=== PATIENT | female | born 1960 | race Caucasian/White ===

== ENCOUNTER 2016-11-17 11:14 | Inpatient (IN) | payer OTHER ==
[2016-11-18] MEDS: oxyCODONE IR 5 MG TAB PO PRN ×3 (14:31→21:45)
[2016-11-18] MEDS ORDERED: CEPACOL LOZENGE PO PRN (15:43)
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
[2016-11-18] MEDS: ACETAMINOPHEN 325 MG TAB PO PRN ×2 (18:15→23:29)
[2016-11-18] MEDS: DIAZEPAM 5 MG TAB PO PRN (19:21)
[2016-11-18] MEDS: oxyCODONE CR 15 MG TAB PO SCH (20:26)
[2016-11-18] MEDS ORDERED: [UNRECOGNIZED DRUG - REMARK] SC SCH (21:00)
[2016-11-18] MEDS ORDERED: BACITRACIN TP SCH (21:00)
[2016-11-18] MEDS: CYCLOBENZAPRINE 10 MG TAB PO PRN (21:45)
[2016-11-18] MEDS: THYROID 60 MG TAB PO SCH (21:47)
[2016-11-18] MEDS: FAMOTIDINE 20 MG TAB PO SCH (21:47)
[2016-11-18] MEDS: SENNOSIDES 1 TAB PO SCH (21:47)
[2016-11-18] MEDS: ENOXAPARIN 30 MG/0.3 ML SYR SC SCH (21:49)
[2016-11-18] MEDS: BACITRACIN OINTMENT 1 PACKET TP SCH (21:49)
[2016-11-19] MEDS: DIAZEPAM 5 MG TAB PO PRN ×2 (01:05→20:59)
[2016-11-19] MEDS: oxyCODONE IR 5 MG TAB PO PRN ×4 (01:06→23:18)
[2016-11-19] MEDS: CYCLOBENZAPRINE 10 MG TAB PO PRN (04:59)
[2016-11-19] MEDS: BACITRACIN OINTMENT 1 PACKET TP SCH ×2 (08:22→21:01)
[2016-11-19] MEDS: ACETAMINOPHEN 325 MG TAB PO PRN ×2 (08:22→23:17)
[2016-11-19] MEDS: ENOXAPARIN 30 MG/0.3 ML SYR SC SCH ×2 (08:28→21:00)
[2016-11-19] MEDS: FAMOTIDINE 20 MG TAB PO SCH ×2 (08:29→21:00)
[2016-11-19] MEDS: oxyCODONE CR 15 MG TAB PO SCH ×2 (08:29→21:00)
[2016-11-19] MEDS: SENNOSIDES 1 TAB PO SCH (08:29)
[2016-11-19 09:00] LABS: ALANINE AMINOTRANSFERASE 119 IU/L (9-52); ALBUMIN 2.9 g/dL (3.5-5.0); ALKALINE PHOSPHATASE 191 IU/L (38-126); ANION GAP 10 mEq/L (8-16); ASPARTATE AMINOTRANSFERASE 58 IU/L (14-46); BILIRUBIN,TOTAL 0.8 mg/dL (0.1-1.4); CALCIUM 8.7 mg/dL (8.5-10.4); CARBON DIOXIDE 27 mEq/l (22-31); CHLORIDE 99 mEq/L (97-110); CREATININE 0.7 mg/dL (0.6-1.0); GLOMERULAR FILTRATION RATE > 60; GLUCOSE 83 mg/dL (70-100); POTASSIUM 4.4 mEq/L (3.5-5.2); SODIUM 136 mEq/L (134-144); TOTAL PROTEIN 5.8 g/dL (6.3-8.2)
[2016-11-19 09:16] LABS: VITAMIN D 25-HYDROXY TOTAL 17.1 ng/mL (30-100)
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
[2016-11-19 11:52] LABS: % IMMATURE GRANULYOCYTES 1.3 % (0.0-1.1); ABSOLUTE IMMATURE GRANULOCYTES 0.09 10^3/uL (0.00-0.10); ADD DIFF? NO; ADD MORPH? NO; ADD SCAN? NO; ATYPICAL LYMPHOCYTE FLAG 0 (0-99); FRAGMENT RBC FLAG 0 (0-99); HEMATOCRIT 27.3 % (38.0-47.0); HEMOGLOBIN 9.1 g/dL (12.6-16.3); LEFT SHIFT FLG 20 (0-99); LIPEMIA HEMOLYSIS FLAG 80 (0-99); MEAN CELL HEMOGLOBIN 31.6 pg (27.9-34.1); MEAN CELL HEMOGLOBIN CONCENTR. 33.3 g/dL (32.4-36.7); MEAN CELL VOLUME 94.8 fL (81.5-99.8); MEAN PLATELET VOLUME 9.3 fL (8.7-11.7); PLATELET CLUMPS FLAG 0 (0-99); PLATELET COUNT 256 10^3/uL (150-400); RED BLOOD CELL COUNT 2.88 10^6/uL (4.18-5.33); RED CELL DISTRIBUTION WIDTH 12.7 % (11.5-15.2)
[2016-11-19] MEDS ORDERED: BISACODYL 10 MG SUPP PR ONE (11:56)
[2016-11-19] MEDS: MAGNESIUM GLYCINATE 400 MG PO SCH (14:00)
[2016-11-19] MEDS: POLYETHYLENE GLYCOL 3350 17 GM PKT PO PRN (14:53)
[2016-11-19] MEDS: CYCLOBENZAPRINE 10 MG TAB PO SCH (18:06)
[2016-11-19] MEDS: SENNOSIDES/DOCUSATE SODIUM TAB PO SCH (20:59)
[2016-11-19] MEDS: THYROID 60 MG TAB PO SCH (20:59)
[2016-11-19] MEDS: CALCIUM CARB W/VIT D 500 MG TAB PO SCH (21:00)
[2016-11-19] MEDS: ASCORBIC ACID 500 MG TAB PO SCH (21:00)
[2016-11-19] MEDS: BENEFIBER/NUTRISOURCE FIBER PKT 1 EACH PO SCH (21:00)
[2016-11-20] MEDS: ACET/CAFFEINE/BUTA FIORICET 1 EACH TAB PO PRN (06:29)
[2016-11-20] MEDS: oxyCODONE IR 5 MG TAB PO PRN ×3 (06:32→18:54)
[2016-11-20] MEDS: BACITRACIN OINTMENT 1 PACKET TP SCH ×2 (08:42→20:35)
[2016-11-20] MEDS: MAGNESIUM GLYCINATE 400 MG PO SCH (08:42)
[2016-11-20] MEDS: BENEFIBER/NUTRISOURCE FIBER PKT 1 EACH PO SCH ×2 (08:42→20:30)
[2016-11-20] MEDS: ENOXAPARIN 30 MG/0.3 ML SYR SC SCH ×2 (08:42→20:35)
[2016-11-20] MEDS: oxyCODONE CR 15 MG TAB PO SCH ×2 (08:43→20:35)
[2016-11-20] MEDS: CALCIUM CARB W/VIT D 500 MG TAB PO SCH ×2 (08:43→20:34)
[2016-11-20] MEDS: ASCORBIC ACID 500 MG TAB PO SCH ×2 (08:44→20:35)
[2016-11-20] MEDS: SENNOSIDES/DOCUSATE SODIUM TAB PO SCH ×2 (08:44→19:03)
[2016-11-20] MEDS: FAMOTIDINE 20 MG TAB PO SCH ×2 (08:44→20:35)
[2016-11-20] MEDS ORDERED: traMADol 50 MG TAB PO ONE (13:00)
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
[2016-11-20] MEDS: CYCLOBENZAPRINE 10 MG TAB PO SCH (18:51)
[2016-11-20] MEDS: ACETAMINOPHEN 325 MG TAB PO PRN (19:50)
[2016-11-20] MEDS: THYROID 60 MG TAB PO SCH (20:35)
[2016-11-20] MEDS: traMADol 50 MG TAB PO PRN (22:53)
[2016-11-21] MEDS: ACET/CAFFEINE/BUTA FIORICET 1 EACH TAB PO PRN (08:15)
[2016-11-21] MEDS: oxyCODONE CR 15 MG TAB PO SCH ×2 (08:16→21:15)
[2016-11-21] MEDS: ENOXAPARIN 30 MG/0.3 ML SYR SC SCH ×2 (08:16→21:17)
[2016-11-21] MEDS: ASCORBIC ACID 500 MG TAB PO SCH ×2 (08:16→21:00)
[2016-11-21] MEDS: FAMOTIDINE 20 MG TAB PO SCH ×2 (08:16→21:14)
[2016-11-21] MEDS: CALCIUM CARB W/VIT D 500 MG TAB PO SCH ×2 (08:16→21:14)
[2016-11-21] MEDS: SENNOSIDES/DOCUSATE SODIUM TAB PO SCH ×2 (08:17→21:14)
[2016-11-21] MEDS: MAGNESIUM GLYCINATE 400 MG PO SCH (08:18)
--- NOTE | 2016-11-21 09:12 | PDOREHIP ---
Admission [facility] - Admission - 3 Day Assessment Period Admission Date/Day 1: 11/18/16 Day 2: 11/19/16 Day 3: 11/20/16 - Active Diagnoses Comorbidities and Co-existing Conditions at Admission: 71407. None of the Above - Skin Conditions Unhealed Pressure Ulcer (1 or more/Stage 1 or >)-Admission: 0. No
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
[2016-11-21] MEDS: BENEFIBER/NUTRISOURCE FIBER PKT 1 EACH PO SCH ×2 (09:47→21:16)
[2016-11-21] MEDS: oxyCODONE IR 5 MG TAB PO PRN ×2 (11:18→18:24)
[2016-11-21] MEDS: BACITRACIN OINTMENT 1 PACKET TP SCH ×2 (11:21→21:14)
[2016-11-21] MEDS: traMADol 50 MG TAB PO PRN ×2 (12:59→21:13)
[2016-11-21] MEDS ORDERED: CETIRIZINE 5 MG/5 ML UDL PO PRN (13:20)
[2016-11-21] MEDS ORDERED: CETIRIZINE 10 MG TAB PO PRN (14:55)
[2016-11-21] MEDS: CYCLOBENZAPRINE 10 MG TAB PO SCH (18:24)
[2016-11-21] MEDS: THYROID 60 MG TAB PO SCH (21:14)
[2016-11-22] MEDS: ACET/CAFFEINE/BUTA FIORICET 1 EACH TAB PO PRN (07:16)
[2016-11-22] MEDS: oxyCODONE CR 15 MG TAB PO SCH ×2 (07:16→21:12)
[2016-11-22] MEDS: BENEFIBER/NUTRISOURCE FIBER PKT 1 EACH PO SCH ×2 (07:20→21:11)
[2016-11-22] MEDS: ENOXAPARIN 30 MG/0.3 ML SYR SC SCH ×2 (07:39→21:13)
[2016-11-22] MEDS: FAMOTIDINE 20 MG TAB PO SCH ×2 (07:39→21:13)
[2016-11-22] MEDS: CHOLECALCIFEROL VIT D3 2,000 UNITS TAB/CAP PO SCH (07:39)
[2016-11-22] MEDS: SENNOSIDES/DOCUSATE SODIUM TAB PO SCH ×2 (07:40→21:11)
[2016-11-22] MEDS: CALCIUM CARB W/VIT D 500 MG TAB PO SCH ×2 (07:40→21:13)
[2016-11-22] MEDS: BACITRACIN OINTMENT 1 PACKET TP SCH (07:40)
[2016-11-22] MEDS: ASCORBIC ACID 500 MG TAB PO SCH ×2 (07:40→21:12)
[2016-11-22] MEDS: MAGNESIUM GLYCINATE 400 MG PO SCH (07:41)
[2016-11-22] MEDS: traMADol 50 MG TAB PO PRN ×2 (11:03→19:42)
[2016-11-22] MEDS: oxyCODONE IR 5 MG TAB PO PRN ×2 (12:26→17:34)
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
[2016-11-22 16:48] LABS: ADD DIFF? YES; ADD MORPH? NO; ADD SCAN? NO; ATYPICAL LYMPHOCYTE FLAG 30 (0-99); FRAGMENT RBC FLAG 0 (0-99); HEMATOCRIT 28.4 % (38.0-47.0); HEMOGLOBIN 9.2 g/dL (12.6-16.3); LEFT SHIFT FLG 20 (0-99); LIPEMIA HEMOLYSIS FLAG 80 (0-99); MEAN CELL HEMOGLOBIN CONCENTR. 32.4 g/dL (32.4-36.7); MEAN CELL VOLUME 95.6 fL (81.5-99.8); MEAN PLATELET VOLUME 8.9 fL (8.7-11.7); PLATELET CLUMPS FLAG 0 (0-99); PLATELET COUNT 399 10^3/uL (150-400); RED BLOOD CELL COUNT 2.97 10^6/uL (4.18-5.33); RED CELL DISTRIBUTION WIDTH 13.5 % (11.5-15.2)
[2016-11-22 17:07] LABS: ANION GAP 9 mEq/L (8-16); CALCIUM 9.3 mg/dL (8.5-10.4); CARBON DIOXIDE 30 mEq/l (22-31); CHLORIDE 96 mEq/L (97-110); CREATININE 0.6 mg/dL (0.6-1.0); GLOMERULAR FILTRATION RATE > 60; GLUCOSE 82 mg/dL (70-100); POTASSIUM 4.2 mEq/L (3.5-5.2); SODIUM 135 mEq/L (134-144)
[2016-11-22 17:20] LABS: PLATELET ESTIMATE ADEQUATE (ADEQ)
[2016-11-22] MEDS: ACETAMINOPHEN 325 MG TAB PO PRN (19:42)
[2016-11-22] MEDS: THYROID 60 MG TAB PO SCH (21:12)
[2016-11-23] MEDS: oxyCODONE IR 5 MG TAB PO SCH (05:04)
[2016-11-23] MEDS: ONDANSETRON DISINTEGRATING 4 MG TAB PO PRN (08:50)
[2016-11-23] MEDS: BISACODYL 10 MG SUPP PR PRN (09:25)
[2016-11-23] MEDS: ENOXAPARIN 30 MG/0.3 ML SYR SC SCH ×2 (09:33→21:37)
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
[2016-11-23] MEDS: FAMOTIDINE 20 MG TAB PO SCH ×2 (11:14→21:30)
[2016-11-23] MEDS: oxyCODONE CR 15 MG TAB PO SCH ×2 (12:51→21:30)
[2016-11-23] MEDS: oxyCODONE IR 5 MG TAB PO PRN ×3 (12:52→23:36)
[2016-11-23] MEDS: ACET/CAFFEINE/BUTA FIORICET 1 EACH TAB PO PRN (12:53)
[2016-11-23] MEDS: ASCORBIC ACID 500 MG TAB PO SCH ×3 (12:53→21:30)
[2016-11-23] MEDS: CALCIUM CARB W/VIT D 500 MG TAB PO SCH (12:54)
[2016-11-23] MEDS: CHOLECALCIFEROL VIT D3 2,000 UNITS TAB/CAP PO SCH ×2 (12:54→18:39)
[2016-11-23] MEDS: MAGNESIUM GLYCINATE 400 MG PO SCH (12:55)
[2016-11-23] MEDS: BENEFIBER/NUTRISOURCE FIBER PKT 1 EACH PO SCH ×2 (12:55→21:51)
[2016-11-23] MEDS: SENNOSIDES/DOCUSATE SODIUM TAB PO SCH ×2 (12:56→21:51)
[2016-11-23] MEDS: POLYETHYLENE GLYCOL 3350 17 GM PKT PO PRN (18:09)
[2016-11-23] MEDS: THYROID 60 MG TAB PO SCH (21:30)
[2016-11-23] MEDS: ACETAMINOPHEN 325 MG TAB PO PRN (23:35)
[2016-11-24] MEDS: ACET/CAFFEINE/BUTA FIORICET 1 EACH TAB PO PRN (05:13)
[2016-11-24] MEDS: oxyCODONE IR 5 MG TAB PO SCH (05:14)
[2016-11-24] MEDS: SENNOSIDES/DOCUSATE SODIUM TAB PO SCH ×3 (09:16→21:22)
[2016-11-24] MEDS: ASCORBIC ACID 500 MG TAB PO SCH ×2 (09:23→21:18)
[2016-11-24] MEDS: BENEFIBER/NUTRISOURCE FIBER PKT 1 EACH PO SCH ×2 (09:23→21:18)
[2016-11-24] MEDS: CALCIUM CARB W/VIT D 500 MG TAB PO SCH ×2 (09:24→16:12)
[2016-11-24] MEDS: FAMOTIDINE 20 MG TAB PO SCH ×2 (09:25→21:18)
[2016-11-24] MEDS: CHOLECALCIFEROL VIT D3 2,000 UNITS TAB/CAP PO SCH (09:25)
[2016-11-24] MEDS: ENOXAPARIN 30 MG/0.3 ML SYR SC SCH ×2 (09:25→21:18)
[2016-11-24] MEDS: oxyCODONE CR 15 MG TAB PO SCH ×2 (09:26→21:18)
[2016-11-24] MEDS: MAGNESIUM GLYCINATE 400 MG PO SCH ×3 (09:27→16:12)
[2016-11-24] MEDS: oxyCODONE IR 5 MG TAB PO PRN (12:45)
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
[2016-11-24 19:43] LABS: COLOR YELLOW; LEUKOCYTE ESTERASE,URINE NEGATIVE (NEGATIVE); NITRITE,URINE NEGATIVE (NEGATIVE)
[2016-11-24] MEDS: BISACODYL 10 MG SUPP PR PRN (20:13)
[2016-11-24] MEDS: THYROID 60 MG TAB PO SCH (21:18)
[2016-11-25] MEDS: ACET/CAFFEINE/BUTA FIORICET 1 EACH TAB PO PRN (05:10)
[2016-11-25] MEDS: oxyCODONE IR 5 MG TAB PO SCH (05:10)
[2016-11-25] MEDS: BENEFIBER/NUTRISOURCE FIBER PKT 1 EACH PO SCH ×2 (08:14→20:29)
[2016-11-25] MEDS: ASCORBIC ACID 500 MG TAB PO SCH ×2 (08:16→20:29)
[2016-11-25] MEDS: MAGNESIUM GLYCINATE 400 MG PO SCH ×2 (08:16→15:27)
[2016-11-25] MEDS: ENOXAPARIN 30 MG/0.3 ML SYR SC SCH ×2 (08:16→20:28)
[2016-11-25] MEDS: FAMOTIDINE 20 MG TAB PO SCH ×2 (08:16→20:28)
[2016-11-25] MEDS: CALCIUM CARB W/VIT D 500 MG TAB PO SCH ×2 (08:16→15:27)
[2016-11-25] MEDS: CHOLECALCIFEROL VIT D3 2,000 UNITS TAB/CAP PO SCH (08:16)
[2016-11-25] MEDS: oxyCODONE CR 15 MG TAB PO SCH ×2 (08:17→20:28)
[2016-11-25] MEDS: SENNOSIDES/DOCUSATE SODIUM TAB PO SCH ×2 (08:17→20:29)
[2016-11-25] MEDS: oxyCODONE IR 5 MG TAB PO PRN ×2 (11:08→14:08)
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
[2016-11-25] MEDS: ACETAMINOPHEN 325 MG TAB PO PRN (19:50)
[2016-11-25] MEDS: THYROID 60 MG TAB PO SCH (20:29)
[2016-11-25] MEDS: BISACODYL 10 MG SUPP PR PRN (20:40)
[2016-11-26] MEDS: oxyCODONE IR 5 MG TAB PO SCH (05:00)
[2016-11-26] MEDS: ACET/CAFFEINE/BUTA FIORICET 1 EACH TAB PO PRN (05:00)
[2016-11-26] MEDS: CALCIUM CARB W/VIT D 500 MG TAB PO SCH ×2 (09:04→15:45)
[2016-11-26] MEDS: CHOLECALCIFEROL VIT D3 2,000 UNITS TAB/CAP PO SCH (09:05)
[2016-11-26] MEDS: SENNOSIDES/DOCUSATE SODIUM TAB PO SCH ×2 (09:05→21:12)
[2016-11-26] MEDS: ASCORBIC ACID 500 MG TAB PO SCH ×2 (09:05→21:12)
[2016-11-26] MEDS: FAMOTIDINE 20 MG TAB PO SCH ×2 (09:05→21:12)
[2016-11-26] MEDS: MAGNESIUM GLYCINATE 400 MG PO SCH ×2 (09:06→15:45)
[2016-11-26] MEDS: ENOXAPARIN 30 MG/0.3 ML SYR SC SCH ×2 (09:06→21:13)
[2016-11-26] MEDS: BENEFIBER/NUTRISOURCE FIBER PKT 1 EACH PO SCH ×2 (09:06→21:12)
[2016-11-26] MEDS: oxyCODONE CR 15 MG TAB PO SCH ×2 (09:07→21:12)
[2016-11-26] MEDS: BETHANECHOL 10 MG TAB PO SCH ×4 (09:11→21:12)
[2016-11-26] MEDS: oxyCODONE IR 5 MG TAB PO PRN (10:36)
[2016-11-26] MEDS: traMADol 50 MG TAB PO PRN (10:36)
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
[2016-11-26] MEDS: BISACODYL 10 MG SUPP PR PRN (19:53)
[2016-11-26] MEDS: ACETAMINOPHEN 325 MG TAB PO PRN (21:11)
[2016-11-26] MEDS: THYROID 60 MG TAB PO SCH (21:12)
[2016-11-26 21:44] LABS: COLOR YELLOW; LEUKOCYTE ESTERASE,URINE 2+ (NEGATIVE); NITRITE,URINE POSITIVE (NEGATIVE)
[2016-11-26 22:12] LABS: BACTERIA TRACE /hpf (NONE SEEN); WBC,URINE 25-50 /hpf (0-3)
[2016-11-27] MEDS: oxyCODONE IR 5 MG TAB PO SCH (04:56)
[2016-11-27] MEDS: BETHANECHOL 10 MG TAB PO SCH ×4 (04:57→21:07)
[2016-11-27] MEDS: ACET/CAFFEINE/BUTA FIORICET 1 EACH TAB PO PRN (04:57)
[2016-11-27] MEDS: MAGNESIUM GLYCINATE 400 MG PO SCH ×2 (08:59→16:55)
[2016-11-27] MEDS: SENNOSIDES/DOCUSATE SODIUM TAB PO SCH ×2 (09:02→21:07)
[2016-11-27] MEDS: BENEFIBER/NUTRISOURCE FIBER PKT 1 EACH PO SCH ×2 (09:02→22:14)
[2016-11-27] MEDS: CALCIUM CARB W/VIT D 500 MG TAB PO SCH ×2 (09:02→16:54)
[2016-11-27] MEDS: ENOXAPARIN 30 MG/0.3 ML SYR SC SCH ×2 (09:02→21:07)
[2016-11-27] MEDS: FAMOTIDINE 20 MG TAB PO SCH ×2 (09:02→21:07)
[2016-11-27] MEDS: ASCORBIC ACID 500 MG TAB PO SCH ×2 (09:02→21:11)
[2016-11-27] MEDS: CHOLECALCIFEROL VIT D3 2,000 UNITS TAB/CAP PO SCH (09:02)
[2016-11-27] MEDS: oxyCODONE CR 15 MG TAB PO SCH ×2 (09:03→21:07)
[2016-11-27] MEDS: oxyCODONE IR 5 MG TAB PO PRN ×2 (10:09→14:09)
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
[2016-11-27] MEDS: BISACODYL 10 MG SUPP PR PRN (21:07)
[2016-11-27] MEDS: ACETAMINOPHEN 325 MG TAB PO PRN (21:11)
[2016-11-27] MEDS: THYROID 60 MG TAB PO SCH (21:11)
[2016-11-28] MEDS: oxyCODONE IR 5 MG TAB PO SCH (05:12)
[2016-11-28] MEDS: BETHANECHOL 10 MG TAB PO SCH ×4 (05:13→20:34)
[2016-11-28] MEDS: ACET/CAFFEINE/BUTA FIORICET 1 EACH TAB PO PRN (05:15)
[2016-11-28] MEDS: BENEFIBER/NUTRISOURCE FIBER PKT 1 EACH PO SCH ×2 (08:50→23:27)
[2016-11-28] MEDS: ASCORBIC ACID 500 MG TAB PO SCH ×2 (08:51→20:34)
[2016-11-28] MEDS: ENOXAPARIN 30 MG/0.3 ML SYR SC SCH ×2 (08:52→20:33)
[2016-11-28] MEDS: CALCIUM CARB W/VIT D 500 MG TAB PO SCH ×2 (08:52→16:38)
[2016-11-28] MEDS: FAMOTIDINE 20 MG TAB PO SCH ×2 (08:52→20:33)
[2016-11-28] MEDS: CHOLECALCIFEROL VIT D3 2,000 UNITS TAB/CAP PO SCH (08:52)
[2016-11-28] MEDS: oxyCODONE CR 15 MG TAB PO SCH ×2 (08:52→20:35)
[2016-11-28] MEDS: SENNOSIDES/DOCUSATE SODIUM TAB PO SCH ×2 (08:53→20:34)
[2016-11-28] MEDS: MAGNESIUM GLYCINATE 400 MG PO SCH ×2 (08:53→16:39)
[2016-11-28 08:54] LABS: ALANINE AMINOTRANSFERASE 55 IU/L (9-52); ALBUMIN 3.6 g/dL (3.5-5.0); ALKALINE PHOSPHATASE 161 IU/L (38-126); ANION GAP 7 mEq/L (8-16); ASPARTATE AMINOTRANSFERASE 24 IU/L (14-46); BILIRUBIN,TOTAL 0.7 mg/dL (0.1-1.4); CALCIUM 9.5 mg/dL (8.5-10.4); CARBON DIOXIDE 28 mEq/l (22-31); CHLORIDE 105 mEq/L (97-110); CREATININE 0.6 mg/dL (0.6-1.0); GLOMERULAR FILTRATION RATE > 60; GLUCOSE 79 mg/dL (70-100); POTASSIUM 5.7 mEq/L (3.5-5.2); SODIUM 140 mEq/L (134-144); TOTAL PROTEIN 6.5 g/dL (6.3-8.2)
[2016-11-28] MEDS: oxyCODONE IR 5 MG TAB PO PRN (10:08)
[2016-11-28] MEDS ORDERED: IBUPROFEN 200 MG TAB PO PRN (10:20)
[2016-11-28] MEDS: SULFAMETHOX/TMP 800/160 MG 1 TAB PO SCH ×2 (10:41→20:33)
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
[2016-11-28] MEDS ORDERED: ACET/CAFFEINE/BUTA FIORICET 1 EACH TAB PO PRN (18:59)
[2016-11-28] MEDS: THYROID 60 MG TAB PO SCH (20:34)
[2016-11-29] MEDS: BETHANECHOL 10 MG TAB PO SCH ×4 (05:04→20:09)
[2016-11-29] MEDS: oxyCODONE IR 5 MG TAB PO SCH (05:04)
[2016-11-29] MEDS ORDERED: ACET/CAFFEINE/BUTA FIORICET 1 EACH TAB PO ONE (06:00)
[2016-11-29 08:40] LABS: ANION GAP 12 mEq/L (8-16); CALCIUM 9.8 mg/dL (8.5-10.4); CARBON DIOXIDE 25 mEq/l (22-31); CHLORIDE 105 mEq/L (97-110); CREATININE 0.7 mg/dL (0.6-1.0); GLOMERULAR FILTRATION RATE > 60; GLUCOSE 82 mg/dL (70-100); POTASSIUM 4.8 mEq/L (3.5-5.2); SODIUM 142 mEq/L (134-144)
[2016-11-29] MEDS: ENOXAPARIN 30 MG/0.3 ML SYR SC SCH ×2 (08:52→20:08)
[2016-11-29] MEDS: ASCORBIC ACID 500 MG TAB PO SCH ×2 (08:52→20:09)
[2016-11-29] MEDS: CALCIUM CARB W/VIT D 500 MG TAB PO SCH ×2 (08:52→15:09)
[2016-11-29] MEDS: CHOLECALCIFEROL VIT D3 2,000 UNITS TAB/CAP PO SCH (08:52)
[2016-11-29] MEDS: BENEFIBER/NUTRISOURCE FIBER PKT 1 EACH PO SCH ×2 (08:53→20:08)
[2016-11-29] MEDS: FAMOTIDINE 20 MG TAB PO SCH ×2 (08:53→20:09)
[2016-11-29] MEDS: MAGNESIUM GLYCINATE 400 MG PO SCH ×2 (08:54→15:10)
[2016-11-29] MEDS: SULFAMETHOX/TMP 800/160 MG 1 TAB PO SCH ×2 (08:55→20:09)
[2016-11-29] MEDS: oxyCODONE CR 15 MG TAB PO SCH ×2 (08:55→20:09)
[2016-11-29] MEDS: SENNOSIDES/DOCUSATE SODIUM TAB PO SCH ×2 (08:55→20:09)
[2016-11-29] MEDS: oxyCODONE IR 5 MG TAB PO PRN ×2 (12:35→15:22)
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
--- NOTE | 2016-11-29 15:46 | WOCRNPDOC ---
WOCRN Advanced Assessment Note - Skin Integrity Problem, Advanced Assess Left Lateral Ankle Dressing Type: Adaptic Touch, Abelardo Dressing Description: Clean/Dry, Intact Exudate Amount: Scant Exudate Color: Reddish/Yellow Exudate Characteristic(s): Serosanguinous Integumentary Issue Intervention: Dressing Applied Chayo Wound Tissue: Erythema, Swollen, Dry, Scarred Chayo Wound Swelling: Mild Wound Bed Color: Brown, Red, Yellow Wound Bed Constitution: Granulation Tissue, Scab, Dried Exudate, Adhered Slough Site Odor: None Site Measurement - Head-to-Toe Length X Width X Depth (cm): 3.5cmx3.1cmx scab Skin Integrity Problem Comment: Large abrasion w/ smaller, satellite scabs noted to L lateral ankle. Some of the scabs were superficial, w/ epithelialized skin noted underneath after site cleansed. There remains a dried, scabbed wound directly over the malleolus w/ red and yellow tissues noted medially, a mixture of dried granulation tissue and trace amount of dried slough. There is mild, discrete erythema and swelling throughout the malleolus, consistent w/ the sprain to this extremity. Activon honey gel applied to wound to facilitate autolytic debridement of scabbed tissues, followed by Telfa and bordered foam dressing. Discharge orders written, and report given to fresco artist Amber.
[2016-11-29] MEDS: THYROID 60 MG TAB PO SCH (20:08)
[2016-11-29] MEDS: BISACODYL 10 MG SUPP PR PRN (20:17)
[2016-11-30] MEDS: ONDANSETRON DISINTEGRATING 4 MG TAB PO PRN (02:13)
[2016-11-30] MEDS: DIAZEPAM 5 MG TAB PO PRN (02:26)
[2016-11-30] MEDS ORDERED: ACET/CAFFEINE/BUTA FIORICET 1 EACH TAB PO ONE (05:00)
[2016-11-30] MEDS: BETHANECHOL 10 MG TAB PO SCH ×2 (05:26→11:51)
[2016-11-30] MEDS: oxyCODONE IR 5 MG TAB PO SCH (05:26)
[2016-11-30 06:07] VITALS: BP 102/58; PULSE 76; TEMP 98.4; O2SAT 1
[2016-11-30] MEDS: CALCIUM CARB W/VIT D 500 MG TAB PO SCH (09:09)
[2016-11-30] MEDS: FAMOTIDINE 20 MG TAB PO SCH (09:09)
[2016-11-30] MEDS: BENEFIBER/NUTRISOURCE FIBER PKT 1 EACH PO SCH (09:09)
[2016-11-30] MEDS: ENOXAPARIN 30 MG/0.3 ML SYR SC SCH (09:09)
[2016-11-30] MEDS: CHOLECALCIFEROL VIT D3 2,000 UNITS TAB/CAP PO SCH (09:09)
[2016-11-30] MEDS: ASCORBIC ACID 500 MG TAB PO SCH (09:09)
[2016-11-30] MEDS: MAGNESIUM GLYCINATE 400 MG PO SCH (09:10)
[2016-11-30] MEDS: oxyCODONE CR 15 MG TAB PO SCH (09:11)
[2016-11-30] MEDS: SENNOSIDES/DOCUSATE SODIUM TAB PO SCH (09:11)
[2016-11-30] MEDS: SULFAMETHOX/TMP 800/160 MG 1 TAB PO SCH (09:11)
[2016-11-30 09:56] LABS: ANION GAP 13 mEq/L (8-16); CALCIUM 9.7 mg/dL (8.5-10.4); CARBON DIOXIDE 26 mEq/l (22-31); CHLORIDE 103 mEq/L (97-110); CREATININE 0.8 mg/dL (0.6-1.0); GLOMERULAR FILTRATION RATE > 60; GLUCOSE 74 mg/dL (70-100); POTASSIUM 5.2 mEq/L (3.5-5.2); SODIUM 142 mEq/L (134-144)
[2016-11-30] MEDS: oxyCODONE IR 5 MG TAB PO PRN (11:52)
[2016-11-30 12:24] VITALS: RESP 18
--- NOTE | 2016-12-01 16:07 | PDOREHIP ---
Admission [facility] - Admission - 3 Day Assessment Period Admission Date/Day 1: 11/18/16 Day 2: 11/19/16 Day 3: 11/20/16 Discharge [facility] - Discharge - 3 Day Assessment Period 2 Days Prior to Anticipated Discharge Date: 11/28/16 1 Day Prior to Anticipated Discharge Date: 11/29/16 Anticipated Discharge Date: 11/30/16 - Discharge Skin Conditions Unhealed Pressure Ulcer (1 or more/Stage 1 or >)-Discharge: 0. No
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
== END 2016-11-30 14:35 | disposition home health service (06) | DRG 560 ==
LOC: BREH 11-18 13:30
PROVIDERS: ADMIT Internal Medicine; ATTEND Internal Medicine
PROC: F07Z8FZ Transfer Training Treatment using Assistive, Adaptive, Supportive or Protective Equipment (ICD-10-PCS; principal; 2016-11-18)
PROC: F08Z0FZ Bathing/Showering Techniques Treatment using Assistive, Adaptive, Supportive or Protective Equipment (ICD-10-PCS; principal; 2016-11-18)
PROC: F07Z5FZ Bed Mobility Treatment using Assistive, Adaptive, Supportive or Protective Equipment (ICD-10-PCS; principal; 2016-11-18)
PROC: F08Z2FZ Grooming/Personal Hygiene Treatment using Assistive, Adaptive, Supportive or Protective Equipment (ICD-10-PCS; principal; 2016-11-18)
PROC: F08Z1FZ Dressing Techniques Treatment using Assistive, Adaptive, Supportive or Protective Equipment (ICD-10-PCS; principal; 2016-11-18)
DX: S42.302D Unspecified fracture of shaft of humerus, left arm, subsequent encounter for fracture with routine healing (principal); S72.002D Fracture of unspecified part of neck of left femur, subsequent encounter for closed fracture with routine healing; S82.51XD Displaced fracture of medial malleolus of right tibia, subsequent encounter for closed fracture with routine healing; Z96.642 Presence of left artificial hip joint; D64.9 Anemia, unspecified; R51 Headache; M81.0 Age-related osteoporosis without current pathological fracture; K59.03 Drug induced constipation; T40.2X5D Adverse effect of other opioids, subsequent encounter; E66.9 Obesity, unspecified; Z68.33 Body mass index [BMI] 33.0-33.9, adult; R60.0 Localized edema; E03.9 Hypothyroidism, unspecified; V48.4XXD Person boarding or alighting a car injured in noncollision transport accident, subsequent encounter; Y92.014 Private driveway to single-family (private) house as the place of occurrence of the external cause; N39.0 Urinary tract infection, site not specified; B96.1 Klebsiella pneumoniae [K. pneumoniae] as the cause of diseases classified elsewhere; E55.9 Vitamin D deficiency, unspecified; R09.02 Hypoxemia
CPT/HCPCS: 97110-GP; 97112-GP; 97116-GP; 97162-GP; 97167-GO; 97530-GO; 97530-GP; 97535-GO

== ENCOUNTER 2016-12-08 13:11 | Emergency (ER) | payer OTHER ==
[2016-12-08 13:21] VITALS: RESP 14; O2SAT 94
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
[2016-12-08 15:16] VITALS: BP 106/61; PULSE 72; TEMP 98.2
== END 2016-12-08 15:10 | disposition home or self-care (01) ==
DX: M79.661 Pain in right lower leg (principal); M79.662 Pain in left lower leg

== ENCOUNTER → 2017-08-02 | Outpatient (CLI) | payer OTHER | LOC: CIMAGING 10:14 | PROVIDERS: ATTEND Internal Medicine | DX: Z12.31 Encounter for screening mammogram for malignant neoplasm of breast (principal); R92.8 Other abnormal and inconclusive findings on diagnostic imaging of breast | CPT/HCPCS: G0202 ==

== ENCOUNTER → 2017-08-11 | Outpatient (CLI) | payer OTHER | LOC: BRMIMAGING 08:55 | PROVIDERS: ATTEND Internal Medicine | DX: R92.8 Other abnormal and inconclusive findings on diagnostic imaging of breast (principal) | CPT/HCPCS: 76641-PO; G0206 ==